=== PATIENT | female | born 1965 | race African-American/Black ===

== ENCOUNTER 2017-04-27 22:00 | Emergency (ER) | payer SELFPAY ==
[~2017-04-27] VITALS: Ht 157.5 cm; Wt 63.6 kg
[2017-04-27 22:12] VITALS: BP 153/98
== END 2017-04-28 06:18 | disposition left against medical advice (07) ==
LOC: ER 22:00
DX: Z53.21 Procedure and treatment not carried out due to patient leaving prior to being seen by health care provider (principal); R06.02 Shortness of breath; F17.210 Nicotine dependence, cigarettes, uncomplicated